=== PATIENT | female | born 1965 | race Caucasian/White ===

== ENCOUNTER 2016-07-26 12:07 | Outpatient (CLI) | payer BC ==
[2016-07-26 13:58] LABS: #Eosinphils 0.1 thou/uL (0.0-0.7); #Lymphocytes 0.8 thou/uL (1.20-3.40); #Monocytes 0.3 thou/uL (0.11-0.59); #Neutrophils 3.7 thou/uL (1.40-6.50); %Basophils 0.6 % (0.0-1.0); %Eosinophils 1.8 % (0.0-10.0); %Lymphocytes 16.5 % (21.0-51.0); %Monocytes 5.5 % (0.0-10.0); %Neutrophils 75.5 % (42.0-75.0); Hemoglobin 12.7 g/dL (12.0-16.0); Mean Corpuscular HGB CONC 32.5 g/dL (32.0-36.0); Mean Corpuscular Hemoglobin 30.5 pg (27.0-31.0); Mean Corpuscular Volume 93.9 fl (81.0-99.0); Mean Platelet Volume 6.2 fL (7.4-10.4); Platelet Count 268 thou/uL (130-400); RBC Distribution Width 15.6 % (11.5-14.5); Red Blood Cell (RBC) Count 4.17 mill/uL (4.20-5.40); White Blood Cell (WBC) Count 4.9 thou/uL (4.8-10.8)
[2016-07-26 14:05] LABS: ALT (SGPT) 39 U/L (8-55); AST (SGOT) 29 U/L (5-34); Albumin 4.1 g/dL (3.5-5.0); Alkaline Phosphatase 70 U/L (40-150); Bilirubin, Direct 0.2 mg/dL (0.1-0.3); Bilirubin, Total 0.7 mg/dL (0.2-1.2); Cardiac Risk 4.8 (Less than 4.5); Cholesterol 202 mg/dl (< 200 Desired); HDL Cholesterol 42 mg/dL (>60 Neg Risk); LDL Cholesterol, Calculated 137 mg/dL; Protein, Total 6.3 g/dL (6.0-8.3); Triglycerides 114 mg/dL (Less than 150)
[2016-07-26 14:23] LABS: Thyroid Stimulating Hormone 0.9493 uIU/mL (0.35-4.94)
[2016-07-26 16:04] LABS: Hemoglobin A1c 5.5 % (4.0-6.0)
[2016-07-26 19:28] LABS: Anion Gap 17 mmol/L (10-20); BUN (Urea Nitrogen) 14 mg/dL (9.8-20.1); Calc. Creatinine Clearance 0 mL/min (70-130); Calcium 8.9 mg/dL (7.8-10.44); Carbon Dioxide 21 mmol/L (22-29); Chloride 107 mmol/L (98-107); Estimated GFR-MDRD 72; Glucose 84 mg/dL (70-105); Potassium 4.3 mmol/L (3.5-5.1); Sodium 141 mmol/L (136-145)
[2016-07-27 18:53] LABS: Hep C IgG Ab Non-Reactive (NonReactive); Hep C Index 0.07 S/CO (0-0.79)
== END 2016-07-26 12:08 | disposition home or self-care (01) ==
LOC: NAVSJIPCSP 12:07
PROVIDERS: ATTEND Family Medicine
DX: Z00.00 Encounter for general adult medical examination without abnormal findings (principal)
CPT/HCPCS: 36415; 80048; 80061; 80076; 83036; 84443; 85025; 86803

== ENCOUNTER 2018-12-05 14:43 | Outpatient (CLI) | payer BC ==
--- NOTE | 2018-12-05 15:09 | RAD ---
CHEST TWO VIEWS: 12/05/2018 PROVIDED CLINICAL HISTORY: Pleural effusion. COMPARISON: 10/01/2015 FINDINGS: Examination is rotated and suboptimally exposed, limiting assessment. The cardiac silhouette is poss ibly enlarged. Bilateral pleural effusions, right greater than left. Patchy bilateral air space disea se. Right IJ implanted port is now seen. No evidence for pneumothorax. IMPRESSION: Bilateral pleural effusions, right greater than left, and bilateral perihilar air space disease. Fin dings may reflect pneumonia or edema. POS: [facility]
== END 2018-12-05 14:44 | disposition home or self-care (01) ==
LOC: NAV RAD 14:43
PROVIDERS: ATTEND Family Medicine
DX: J90 Pleural effusion, not elsewhere classified (principal); C50.919 Malignant neoplasm of unspecified site of unspecified female breast; J98.8 Other specified respiratory disorders
CPT/HCPCS: 71046

== ENCOUNTER 2019-01-01 15:39 | Emergency (ER) | payer BC ==
--- NOTE | 2019-01-01 16:30 | RAD ---
Exam: Chest one view HISTORY:Low O2 saturation. Dyspnea Comparison: 12/05/2018 FINDINGS: Cardiac silhouette:Cardiomegaly. Aorta: Unremarkable Pulmonary vessels: Prominent Costophrenic angles: Bilateral pleural effusions. LUNGS: Stable interstitial and alveolar opacities. Stable right-sided Mediport catheter. Pneumothorax: None Osseous abnormalities: None IMPRESSION: No significant interval change. Persistent opacification of the left and right hemithorax due to pleural and parenchymal changes.
[2019-01-01 16:35] LABS: #Lymphocytes 0.3 thou/uL (1.20-3.40); #Monocytes 0.2 thou/uL (0.11-0.59); #Neutrophils 6.3 thou/uL (1.40-6.50); %Basophils 0.3 % (0.0-1.0); %Lymphocytes 4.9 % (21.0-51.0); %Monocytes 2.2 % (0.0-10.0); %Neutrophils 92.6 % (42.0-75.0); Hemoglobin 9.6 g/dL (12.0-16.0); Mean Corpuscular HGB CONC 32.9 g/dL (32.0-36.0); Mean Corpuscular Hemoglobin 28.7 pg (27.0-31.0); Mean Corpuscular Volume 87.3 fL (78.0-98.0); Mean Platelet Volume 5.2 fL (7.4-10.4); Platelet Count 311 thou/uL (130-400); Red Blood Cell (RBC) Count 3.33 mill/uL (4.20-5.40); White Blood Cell (WBC) Count 6.8 thou/uL (4.8-10.8)
[2019-01-01 16:41] LABS: Base Excess-Venous -0.5 mmol/L (-2.0 to 3.0); Bicarbonate (HCO3v) 24.5 mmol/L (22.0-28.0); CO2 Tension (PvCO2) 40.6 mmHg (40.0-50.0); Calcium, Ionized 1.07 mmol/L (See Comments:); Chloride 84 mmol/L (98-107); Hemoglobin - Calc 11.5 g/dL (12.0-16.0); Potassium 4.8 mmol/L (3.5-5.1); Sodium 118 mmol/L (138-145); T. Carbon Dioxide 25.7 mmol/L (22.0-28.0); vO2 Saturation-calc 78.2 % (60.0-85.0)
[2019-01-01 16:48] LABS: ALT (SGPT) 29 U/L (8-55); AST (SGOT) 29 U/L (5-34); Albumin 3.6 g/dL (3.5-5.0); Alkaline Phosphatase 117 U/L (40-110); Anion Gap 18 mmol/L (10-20); BUN (Urea Nitrogen) 17 mg/dL (9.8-20.1); Bilirubin, Total 0.2 mg/dL (0.2-1.2); Calc. Creatinine Clearance 0 mL/min (70-130); Calcium 8.9 mg/dL (7.8-10.44); Carbon Dioxide 22 mmol/L (22-29); Chloride 86 mmol/L (98-107); Estimated GFR-MDRD Greater than 90; Globulin 2.8 g/dL (2.4-3.5); Glucose 95 mg/dL (70-105); Potassium 4.7 mmol/L (3.5-5.1); Protein, Total 6.4 g/dL (6.0-8.3); Sodium 121 mmol/L (136-145)
[2019-01-01] MEDS ORDERED: Sodium Chloride 0.9% 250 ML 250 ML ONE (17:54)
[2019-01-01] MEDS ORDERED: Sodium Chloride 0.9% 100 ML ONE (19:16)
[2019-01-01] MEDS ORDERED: Cefepime 2 GM VIAL ONE (19:16)
== END 2019-01-01 20:10 | disposition short-term general hospital (02) ==
LOC: NAV ERS 15:39
DX: J18.9 Pneumonia, unspecified organism (principal); I10 Essential (primary) hypertension; Z79.899 Other long term (current) drug therapy; Z79.82 Long term (current) use of aspirin
CPT/HCPCS: 71045; 80053; 82330; 82435; 82803; 83605; 84132; 84295; 85025; 87040; 87804; 93005; 94760; 96365; 96367; J0692; J3370; J3490; J7050